=== PATIENT | female | born 1945 | race Caucasian/White ===

== ENCOUNTER → 2019-01-06 08:45 | Outpatient (CLI) | payer MEDICARE, OTHER, SELFPAY ==
--- NOTE | 2019-01-06 | DI.MG.S_ITS ---
BILATERAL DIGITAL SCREENING MAMMOGRAM 3D/2D WITH CAD: 01/06/2019 CLINICAL: Routine screening. Comparison is made to exams dated: 12/11/2017 mammogram, 04/14/2015 mammogram, and 03/15/2014 mammogram - [facility]. There are scattered fibroglandular elements in both breasts. Current study was also evaluated with a Computer Aided Detection (CAD) system. No significant masses, calcifications, or other findings are seen in either breast. There has been no significant interval change. IMPRESSION: NEGATIVE There is no mammographic evidence of malignancy. A 1 year screening mammogram is recommended. This exam was interpreted at Station ID: [id number]. NOTE: For mammograms, a report in lay terms will be sent to the patient. Approximately 15% of breast malignancies will not be visualized mammographically. In the management of a palpable breast mass, a negative mammogram must not discourage biopsy of a clinically suspicious lesion. Electronically Signed By: Tom loo/michael:01/06/2019 17:54:30 letter sent: Normal Exam ACR BI-RADS Category 1: Negative 3341F
== END ==
PROVIDERS: PCP Family Medicine; Visit Provider Family Medicine
DX: Z12.31 Encounter for screening mammogram for malignant neoplasm of breast (principal)
CPT/HCPCS: 77063; 77067

== ENCOUNTER 2019-10-18 07:07 | Emergency (ER) | payer MEDICARE, OTHER, SELFPAY ==
[2019-10-18 07:21] VITALS: BP 167/102; PULSE 52; RESP 18; TEMP 36.6; O2SAT 98; BMI 23.0
--- NOTE | 2019-10-18 07:58 | ED.URI ---
HPI - URI/Sore Throat General Chief Complaint: Upper Respiratory Symptoms Stated Complaint: real bad sinus infection Time Seen by Provider: 10/18/19 07:49 Source: patient and family Mode of arrival: Wheelchair History of Present Illness HPI Narrative: Patient is a 73-year-old female who presents with dizziness and lightheadedness nausea and diarrhea. She states for the last few days however she has had a couple episodes of diarrhea which started last night in the dizziness got worse and started today as well. Every time she turns her head sits up or moves she feels like the room is spinning and she feels nauseous. She has not yet vomited. She overall has some head pressure does not feel well. She has no numbness tingling is or weakness or any focal deficits. No abdominal pain no chest pain or heart palpitations. MD Complaint: nasal congestion and sinus pain Duration: constant Related Data Home Medications Medication Instructions Recorded Confirmed CA PANTOTHENATE/FOLIC ACID/VIT #0 12/30/12 (MULTIVITAMIN) fluticasone propionate 1 spray INTRANASAL DIRECTED 10/18/19 10/18/19 Previous Rx's Medication Instructions Recorded alendronate [Fosamax] 70 mg PO SEE INSTRUCTIONS #12 tab 12/11/17 levofloxacin [Levaquin] 750 mg PO DAILY #5 tab 10/18/19 Allergies Allergy/AdvReac Type Severity Reaction Status Date / Time Sulfa (Sulfonamide Allergy Intermediate HIVES Verified 10/18/19 07:23 Antibiotics) Review of Systems Review of Systems ROS Unobtainable: All systems reviewed & are unremarkable except as noted in HPI and below Constitutional Constitutional: Denies chills, Reports headache(s), Denies malaise and Reports weakness Eyes Eyes: Denies blurry vision and Denies change in vision ENT Ears, Nose, Mouth, and Throat: Reports as per HPI, Reports dizziness, Reports headache(s) and Reports sinus pressure Cardiovascular Cardiovascular: Denies chest pain, Denies irregular heart rhythm, Reports lightheadedness, Denies dyspnea and Denies dyspnea on exertion Respiratory Respiratory: Denies cough, Denies dyspnea, Denies dyspnea on exertion and Denies wheezing Gastrointestinal Gastrointestinal: Denies abdominal pain, Denies change in bowel habits, Denies diarrhea, Denies nausea and Denies vomiting Genitourinary Genitourinary: Denies hematuria, Denies flank pain, Denies urinary incontinence and Denies urinary urgency Musculoskeletal Musculoskeletal: Denies back pain, Denies muscle weakness, Denies numbness and Denies tingling Integumentary/Breasts Skin/Breast: Denies pruritus, Denies erythema, Denies rash and Denies wounds Neurologic Neurologic: Reports dizziness, Reports headache(s), Denies numbness, Denies tingling and Reports weakness Allergic/Immunologic Allergic/Immunologic: Denies wheezing Patient History Medical History Patient denies medical problems (Acute) Surgical History History of tonsillectomy Exam Initial Vital Signs Initial Vital Signs: Vital Signs Temperature 97.8 F 10/18/19 07:21 Pulse Rate 52 L 10/18/19 07:21 Respiratory Rate 18 10/18/19 07:21 Blood Pressure 167/102 H 10/18/19 07:21 Pulse Oximetry 98 10/18/19 07:21 GENERAL: Well-appearing, well-nourished and in no acute distress. HEENT: Head atraumatic,EOMI, pupils reactive, face symmetric, turning head and sitting up reproduces dizziness CARDIOVASCULAR: Regular rate and rhythm without murmurs, rubs or gallops. RESPIRATORY: Breath sounds equal bilaterally, no wheezes rales or rhonchi. ABDOMEN: Soft, nontender. Normoactive bowel sounds all 4 quadrants. No guarding or rebound. EXTREMITIES: Normal range of motion, no clubbing or edema. Neurovascularly intact NEUROLOGICAL: Alert and oriented x4.Normal gait and speech. Cranial nerves II through XII grossly intact. [employer] strength equal bilaterally depression full able to lift extremities equally SKIN: Warm, dry, no laceration, no petechiae, no rashes or lesions. Scores HEART Score Heart Score history: Slightly Suspicious Heart Score EKG: Normal Heart Score Age: > or = 65 years old Heart Score risk factors: No known risk factors Heart Score troponin: < or = to normal limit Heart Score Total: 2 Course Orders Ordered: ED Orders 10/18/19 09:49 XR chest 1V Stat 10/18/19 10:30 Urine Culture Stat Urine Microscopic Stat 10/18/19 12:05 Troponin I Stat Discontinued Medications Sodium Chloride (Normal Saline 0.9%) 1,000 mls @ 1,000 mls/hr IV CONT MOE Last Infusion: 10/18/19 10:39 Dose: 0 mls/hr Documented by: Admin: 10/18/19 09:04 Dose: 1,000 mls/hr Documented by: ARMANDO Meclizine HCl (Antivert) 25 mg PO NOW ONE Stop: 10/18/19 07:56 Last Admin: 10/18/19 09:04 Dose: 25 mg Documented by: ARMANDO Ondansetron HCl (Zofran) 4 mg IV NOW ONE Stop: 10/18/19 07:56 Last Admin: 10/18/19 09:04 Dose: 4 mg Documented by: ARMANDO Vital Signs Vital signs: Vital Signs - 8 hr 10/18/19 11:00 10/18/19 12:00 10/18/19 12:56 Pulse Rate 63 62 58 L Respiratory Rate 14 15 14 Blood Pressure [Right Arm] 166/92 H 186/96 H 165/86 H Pulse Oximetry 100 99 99 MDM - URI/Sore Throat Lab Data Attestation: I reviewed the patient's lab results. Result diagrams: 10/18/19 08:54 10/18/19 08:54 Labs: Lab Results 10/18/19 10/18/19 10/18/19 Range/Units 08:54 08:54 10:30 WBC 10.9 (4.5-11.0) X10^3/uL RBC 4.95 (4.0-5.2) X10^6/uL Hgb 13.6 (12.0-16.0) g/dL Hct 41.7 (36-46) % MCV 84.2 (80-100) fL MCH 27.4 (26-34) PG MCHC 32.6 (30-36) % RDW 14.5 (11.6-14.8) % Plt Count 185 (150-400) X10^3/uL Neut % (Auto) 86.2 H (50-75) % Lymph % (Auto) 8.6 L (25-40) % [place] % (Auto) 4.6 (3-14) % Eos % (Auto) 0.3 L (2-4) % Baso % (Auto) 0.3 (0-2) % Neut # (Auto) 9400 H (1079-2183) /uL Lymph # (Auto) 900 L (5332-6340) /uL [place] # (Auto) 500 (0-900) /uL Eos # (Auto) 0 (0-450) /uL Baso # (Auto) 0 (0-100) /uL Sodium 141 (137-145) mmol/L Potassium 3.8 (3.4-5.1) mmol/L Chloride 107 (98-107) mmol/L Carbon Dioxide 28 (22-32) mmol/L BUN 18 H (7-17) mg/dL Creatinine 0.60 (0.52-1.04) mg/dL Estimated GFR > 60.0 (>60) mL/min BUN/Creatinine Ratio 30.0 H (6-22) Glucose 105 (80-110) mg/dL Calcium 8.9 (8.4-10.2) mg/dL Troponin I < 0.012 (0.01-0.034) ng/mL Urine RBC None seen (0-5/HPF) Urine WBC 5-10/hpf H (0-5/HPF) Urine Bacteria Moderate (10-30) H (None) Ur Culture Indicated? Specimen cultured 10/18/19 Range/Units 12:05 WBC (4.5-11.0) X10^3/uL RBC (4.0-5.2) X10^6/uL Hgb (12.0-16.0) g/dL Hct (36-46) % MCV (80-100) fL MCH (26-34) PG MCHC (30-36) % RDW (11.6-14.8) % Plt Count (150-400) X10^3/uL Neut % (Auto) (50-75) % Lymph % (Auto) (25-40) % [place] % (Auto) (3-14) % Eos % (Auto) (2-4) % Baso % (Auto) (0-2) % Neut # (Auto) (2986-2185) /uL Lymph # (Auto) (2902-6318) /uL [place] # (Auto) (0-900) /uL Eos # (Auto) (0-450) /uL Baso # (Auto) (0-100) /uL Sodium (137-145) mmol/L Potassium (3.4-5.1) mmol/L Chloride (98-107) mmol/L Carbon Dioxide (22-32) mmol/L BUN (7-17) mg/dL Creatinine (0.52-1.04) mg/dL Estimated GFR (>60) mL/min BUN/Creatinine Ratio (6-22) Glucose (80-110) mg/dL Calcium (8.4-10.2) mg/dL Troponin I < 0.012 (0.01-0.034) ng/mL Urine RBC (0-5/HPF) Urine WBC (0-5/HPF) Urine Bacteria (None) Ur Culture Indicated? Urine Dip Bedside Urine Glucose Negative Bedside Urine Bilirubin - Negative Bedside Urine Ketone - Negative Urine Specific [place] 1.015 Bedside Urine Occult Blood - Negative Bedside Urine pH 6.0 Bedside Urine Protein - Negative Bedside Urine Urobilinogen - Negative Bedside Urine Nitrite - Negative Bedside Urine Leukocytes + 70 Esterase Imaging Data Chest x-ray: Radiologist's Impression: PROCEDURE: XR CHEST 1V INDICATIONS: chest pain TECHNIQUE: One view of the chest was acquired. COMPARISON: None. FINDINGS: Surgical changes and devices: None. Lungs and pleura: Mild bilateral reticular nodular pulmonary density. No pleural effusions or pneumothorax. Mediastinum: Mediastinal contours appear normal. Heart size is normal. Bones and chest wall: No suspicious bony lesions. Overlying soft tissues appear unremarkable. IMPRESSION: Mild atypical pneumonia. Dictated by: Lenard Oconnor M.D. on 10/18/2019 at 10:51 ECG Data Attestation: I personally reviewed and interpreted this ECG as follows: Prior ECG tracings: available for review Interpretation: Normal sinus rhythm rate 56 p.r. interval [address] elevation depression or T-wave inversion [facility] Narrative Medical decision making narrative: Patient started having chest pain all the emergency department repeat EKG and troponin are both negative. She is found have atypical pneumonia and possible UTI started her on Levaquin. This is likely contributing to her dizziness and lightheadedness. At this time she says the dizziness is improving as well as the nausea feels comfortable going. Discharge Plan Departure Patient Disposition: Home Clinical Impression: Atypical pneumonia, Acute UTI Discharge Date/Time: 10/18/19 13:08 Instructions: Atypical Pneumonia, DI for Urinary Tract Infection (UTI) Activity Restrictions/Additional Instructions: *You have been diagnosed with pneumonia and bladder infection *What to do: The infections are likely causing her dizziness and lightheadedness and possibly her chest pain as well *Continue to take medications as directed--> SENT TO [facility] IN [place] Levaquin 750 mg once a day for 5 days-this should treat both infection *Follow up with your primary care provider in 2-3 days *Return to ER if you should have increasing chest pain shortness of breath dizziness lightheadedness or any new, worsening or concerning symptoms Prescriptions: New levofloxacin [Levaquin] 750 mg tablet 750 mg PO DAILY Qty: 5 RF: 0 No Action CA PANTOTHENATE/FOLIC ACID/VIT (MULTIVITAMIN) Qty: 0 RF: 0 alendronate [Fosamax] 70 MG tablet 70 mg PO SEE INSTRUCTIONS Qty: 12 RF: 0 fluticasone propionate 50 mcg/actuation spray,suspension 1 spray INTRANASAL DIRECTED RF: 0 Referrals: Candelario Wong MD [Primary Care Provider] -
[2019-10-18 09:00] LABS: Add Manual Diff / Slide Review NO; Basophils Absolute Auto 0 /uL (0-100); Basophils Percent Auto 0.3 % (0-2); Eosinophils Absolute Auto 0 /uL (0-450); Eosinophils Percent Auto 0.3 % (2-4); Hematocrit 41.7 % (36-46); Hemoglobin 13.6 g/dL (12.0-16.0); Lymphocytes Absolute Auto 900 /uL (1100-4500); Lymphocytes Percent Auto 8.6 % (25-40); Mean Corpuscular HGB Conc 32.6 % (30-36); Mean Corpuscular Hemoglobin 27.4 PG (26-34); Mean Corpuscular Volume 84.2 fL (80-100); Monocytes Absolute Auto 500 /uL (0-900); Monocytes Percent Auto 4.6 % (3-14); Neutrophils Absolute Auto 9400 /uL (1500-7000); Neutrophils Percent Auto 86.2 % (50-75); Platelet Count 185 X10^3/uL (150-400); Red Blood Cell Count 4.95 X10^6/uL (4.0-5.2); Red Cell Distribution Width 14.5 % (11.6-14.8); White Blood Cell Count 10.9 X10^3/uL (4.5-11.0)
[2019-10-18] MEDS: ONDANSETRON 4 MG/2 ML INJ IV (09:04)
[2019-10-18] MEDS: SODIUM CHLORIDE 0.9% 1,000 ML 1000 ML IV (09:04)
[2019-10-18] MEDS: MECLIZINE HCL 12.5 MG TABLET 25 MG PO (09:04)
[2019-10-18 09:10] LABS: Blood Urea Nitrogen 18 mg/dL (7-17); Calcium 8.9 mg/dL (8.4-10.2); Carbon Dioxide 28 mmol/L (22-32); Chloride 107 mmol/L (98-107); Estimated Glomerular Filt Rate > 60.0 mL/min (>60); Glucose 105 mg/dL (80-110); HEMOLYSIS < 15 (0-50); Potassium 3.8 mmol/L (3.4-5.1); Sodium 141 mmol/L (137-145)
[2019-10-18 09:23] LABS: Troponin I < 0.012 ng/mL (0.01-0.034)
--- NOTE | 2019-10-18 09:49 | DI.RAD.S_ITS ---
PROCEDURE: XR CHEST 1V INDICATIONS: chest pain TECHNIQUE: One view of the chest was acquired. COMPARISON: None. FINDINGS: Surgical changes and devices: None. Lungs and pleura: Mild bilateral reticular nodular pulmonary density. No pleural effusions or pneumothorax. Mediastinum: Mediastinal contours appear normal. Heart size is normal. Bones and chest wall: No suspicious bony lesions. Overlying soft tissues appear unremarkable. IMPRESSION: Mild atypical pneumonia. Dictated by: Lenard Oconnor M.D. on 10/18/2019 at 10:51 Approved by: Lenard Oconnor M.D. on 10/18/2019 at 10:52
[2019-10-18 10:00] VITALS: BP 187/92; PULSE 63; RESP 6; O2SAT 97
[2019-10-18 10:30] VITALS: BP 179/89; PULSE 65; RESP 15; O2SAT 98
[2019-10-18 11:00] VITALS: BP 166/92; PULSE 63; RESP 14; O2SAT 100
[2019-10-18 11:00] LABS: RBC Urine None Seen (0-5/HPF)
[2019-10-18 11:10] LABS: Bacteria Urine Moderate (10-30); Culture Indicated Urine Specimen Cultured; WBC Urine 5-10/HPF (0-5/HPF)
[2019-10-18 12:00] VITALS: BP 186/96; PULSE 62; RESP 15; O2SAT 99
[2019-10-18 12:35] LABS: Troponin I < 0.012 ng/mL (0.01-0.034)
[2019-10-18 12:56] VITALS: BP 165/86; PULSE 58; RESP 14; O2SAT 99
== END 2019-10-18 13:08 | disposition home or self-care (01) ==
PROVIDERS: Emergency Provider Emergency Medicine; PCP Family Medicine
DX: J18.9 Pneumonia, unspecified organism (principal); N30.90 Cystitis, unspecified without hematuria; R42 Dizziness and giddiness; R07.9 Chest pain, unspecified
CPT/HCPCS: 36415; 71045; 80048; 81003; 81015; 84484; 85025; 87077; 87086; 87186; 93005; 96361; 96374; 99283; 99285; J2405

== ENCOUNTER → 2020-06-01 12:39 | Outpatient (CLI) | payer MEDICARE, OTHER, SELFPAY ==
--- NOTE | 2020-06-01 12:43 | DI.MG.S_ITS ---
BILATERAL DIGITAL SCREENING MAMMOGRAM 3D/2D WITH CAD: 06/01/2020 CLINICAL: Routine screening. Comparison is made to exams dated: 01/06/2019 mammogram, 12/11/2017 mammogram, 03/20/2016 mammogram, 04/14/2015 mammogram, 10/04/2014 mammogram, and 03/15/2014 mammogram - [facility]. There are scattered fibroglandular elements in both breasts. Current study was also evaluated with a Computer Aided Detection (CAD) system. There are benign calcifications in both breasts. There also are benign vascular calcifications in the right breast. No significant masses, calcifications, or other findings are seen in either breast. There has been no significant interval change. IMPRESSION: BENIGN There is no mammographic evidence of malignancy. A 1 year screening mammogram is recommended. This exam was interpreted at Station ID: [id number]. NOTE: For mammograms, a report in lay terms will be sent to the patient. Approximately 15% of breast malignancies will not be visualized mammographically. In the management of a palpable breast mass, a negative mammogram must not discourage biopsy of a clinically suspicious lesion. Electronically Signed By: Ronal méndez/michael:06/01/2020 17:15:20 letter sent: Normal Exam ACR BI-RADS Category 2: Benign Finding(s) 3342F
== END ==
PROVIDERS: PCP Family Medicine; Referring Provider Family Medicine; Visit Provider Family Medicine
DX: Z12.31 Encounter for screening mammogram for malignant neoplasm of breast (principal)
CPT/HCPCS: 77063; 77067

== ENCOUNTER → 2020-06-27 09:26 | Outpatient (CLI) | payer MEDICARE, OTHER, SELFPAY ==
[2020-06-27 11:25] LABS: Add Manual Diff / Slide Review NO; Basophils Absolute Auto 100 /uL (0-100); Basophils Percent Auto 1.2 % (0-2); Eosinophils Absolute Auto 100 /uL (0-450); Eosinophils Percent Auto 1.8 % (2-4); Hematocrit 42.5 % (36-46); Hemoglobin 13.9 g/dL (12.0-16.0); Lymphocytes Absolute Auto 1200 /uL (1100-4500); Lymphocytes Percent Auto 21.1 % (25-40); Mean Corpuscular HGB Conc 32.6 % (30-36); Mean Corpuscular Hemoglobin 27.6 PG (26-34); Mean Corpuscular Volume 84.6 fL (80-100); Monocytes Absolute Auto 500 /uL (0-900); Neutrophils Absolute Auto 3800 /uL (1500-7000); Neutrophils Percent Auto 66.9 % (50-75); Platelet Count 201 X10^3/uL (150-400); Red Blood Cell Count 5.03 X10^6/uL (4.0-5.2); Red Cell Distribution Width 14.3 % (11.6-14.8); White Blood Cell Count 5.6 X10^3/uL (4.5-11.0)
[2020-06-27 12:14] LABS: Alanine Aminotransferase 27 IU/L (<35); Albumin Globulin Ratio 1.4 (1.0-2.8); Alkaline Phosphatase 77 U/L (38-126); Aspartate Aminotransferase 31 IU/L (14-36); BUN Creatinine Ratio 27.4 (6-22); Bilirubin Total 0.5 mg/dL (0.2-1.3); Blood Urea Nitrogen 20 mg/dL (7-17); Calcium 9.4 mg/dL (8.4-10.2); Carbon Dioxide 31 mmol/L (22-32); Chloride 101 mmol/L (98-107); Cholesterol 214 mg/dL (140-199); Estimated Glomerular Filt Rate > 60.0 mL/min (>60); Globulin 2.8 g/dL (1.7-4.1); Glucose 73 mg/dL (80-110); HDL Cholesterol 90 mg/dL (40-60); HEMOLYSIS < 15 (0-50); LDL Cholesterol Calculated 100 mg/dL (<100); Potassium 3.9 mmol/L (3.4-5.1); Sodium 138 mmol/L (137-145); Total Protein 6.8 g/dL (6.3-8.2); Triglycerides 119 mg/dL (35-150)
[2020-06-27 12:39] LABS: Thyroid Stimulating Hormone 2.27 uIU/mL (0.47-4.68)
== END ==
PROVIDERS: PCP Family Medicine; Referring Provider Family Medicine; Visit Provider Family Medicine
DX: I10 Essential (primary) hypertension (principal)
CPT/HCPCS: 36415; 80053; 80061; 84443; 85025

== ENCOUNTER → 2020-07-13 09:58 | Outpatient (CLI) | payer MEDICARE, OTHER, SELFPAY ==
--- NOTE | 2020-07-13 10:00 | DI.RAD.S_ITS ---
PROCEDURE: XR DEXA AXIAL SKELETON INDICATIONS: post menopausal symptoms COMPARISON: None. FINDINGS: This blank DEXA report has been sent in error by the PACS system. The correct and complete report will be forthcoming in 1-2 days. Thank you for your patience and understanding. Dictated by: Sarah Pierce MD, PhD on 07/13/2020 at 17:26 Approved by: Sarah Pierce MD, PhD on 07/13/2020 at 17:26
== END ==
PROVIDERS: PCP Family Medicine; Referring Provider Family Medicine; Visit Provider Family Medicine
DX: M85.88 Other specified disorders of bone density and structure, other site (principal); Z78.0 Asymptomatic menopausal state; Z82.62 Family history of osteoporosis
CPT/HCPCS: 77080

== ENCOUNTER 2020-12-11 11:52 | Emergency (ER) | payer MEDICARE, OTHER, SELFPAY ==
[2020-12-11 12:03] VITALS: BP 217/105; PULSE 52; RESP 16; TEMP 36.4; O2SAT 100; BMI 23.0
--- NOTE | 2020-12-11 12:08 | DI.RAD.S_ITS ---
PROCEDURE: XR FOREARM LT 2V INDICATIONS: fall TECHNIQUE: 2 views of the forearm were acquired. COMPARISON: None. FINDINGS: Bones: No dislocations. No suspicious bony lesions. There is an impacted intra-articular dorsally angulated distal radius Colles'fracture, and also fracture at the distal metadiaphyseal junction of the ulna, in addition to a fracture across the base of the ulnar-styloid process. Soft tissues: No suspicious soft tissue calcifications or masses. IMPRESSION: Significant malalignment is associated with a distal radius and distal ulna fracture complex, with intra-articular extension. Dorsal angulation in addition to distal radius impaction is present. Mild malalignment along the diagonal distal ulna fracture plane. Dictated by: Anson Santos M.D. on 12/11/2020 at 12:48 Approved by: Anson Santos M.D. on 12/11/2020 at 12:52
[2020-12-11] MEDS: HYDROCODONE/ACET 5/325 TABLET 1 TAB PO (14:16)
--- NOTE | 2020-12-11 15:31 | ED.UPPEXIN ---
HPI - Extremity Injury (Upper) <ADRIANA Dominguez-BC - Last Filed: 12/11/20 16:12> General Chief Complaint: Extremity Injury, Upper Stated Complaint: Fall, Hurt Left Wrist Time Seen by Provider: 12/11/20 14:04 Source: patient and family Mode of arrival: Ambulatory Limitations: no limitations History of Present Illness HPI narrative: The patient is a 75-year-old female nonsmoker who denies pertinent medical history presents with a chief complaint of left wrist pain after a slip and fall earlier today. She states that she has a FOOSH injury to her left wrist. She is able to flex and extend her left elbow, denies any pain to her left shoulder. She did not hit her head, denies any neck or back pain she states that she fell because she was wearing a rocks on slippery grass. She states that she landed solely on her left hand Related Data Home Medications Medication Instructions Recorded Confirmed CA PANTOTHENATE/FOLIC ACID/VIT #0 12/30/12 06/27/20 (MULTIVITAMIN) Previous Rx's Medication Instructions Recorded fluticasone propionate 50 1 spray INTRANASAL DAILY #15.8 ml 07/27/20 mcg/actuation nasal spray,suspension hydrocodone-acetaminophen [[place]] 1 tab PO Q4-6H PRN #14 tab 12/11/20 Allergies Allergy/AdvReac Type Severity Reaction Status Date / Time Sulfa (Sulfonamide Allergy Intermediate HIVES Verified 12/11/20 12:08 Antibiotics) Review of Systems <ADRIANA Dominguez-BC - Last Filed: 12/11/20 16:12> Review of Systems Narrative: GENERAL: Denies chills, fatigue, malaise, fever, sweats. HEENT: Denies sinus pain, ear pain, sore throat, difficulty swallowing, dizziness. RESPIRATORY: Denies dyspnea, cough, wheezing, hemoptysis, sputum. CARDIOVASCULAR: Denies chest pain, palpitations, orthopnea, edema, GASTROINTESTINAL: Denies nausea, vomiting, abdominal pain, diarrhea, constipation, melena. : Denies dysuria, frequency, incontinence, hematuria, urinary retention. MUSCULOSKELETAL: See HPI SKIN: Denies rash, skin lesions, or other NEUROLOGIC: Denies weakness, headache, numbness, change in speech, confusion, seizures, incoordination. PSYCHIATRIC: No concerning psychosocial issues. 12 point review of systems is negative except for those stated above Patient History <JANINA Dominguez - Last Filed: 12/11/20 16:12> Medical History (Updated 12/11/20 @ 15:38 by JANINA Dominguez) Chronic sinusitis Patient denies medical problems Surgical History History of tonsillectomy Social History Smoking Status: Never smoker Smoking Status: Never smoker Exam <JANINA Dominguez - Last Filed: 12/11/20 16:12> Narrative Exam Narrative: GENERAL: This is a well-nourished, well-developed patient, in no acute distress HEAD: Atraumatic. Normocephalic. No temporal or scalp tenderness. EYES: Pupils equal round and reactive. Extraocular motions intact. No scleral icterus. No injection or drainage. ENT: Nose without bleeding, purulent drainage or septal hematoma. Wearing a mask Airway patent. NECK: Trachea midline. No JVD or lymphadenopathy. Supple, nontender, no meningeal signs. CARDIOVASCULAR: Regular rate and rhythm RESPIRATORY: Clear to auscultation. Breath sounds equal bilaterally. No wheezes, rales, or rhonchi. No cough. No increased respiratory effort. No accessory muscle use. GASTROINTESTINAL: Abdomen soft, non-tender, nondistended. No hepato-splenomegaly, or palpable masses. No guarding. EXTREMITIES: Pain to palpation and significant swelling noted left wrist wiggling left fingers. Positive left radial pulse. Cap refill less than 2 seconds all fingers left wrist. No pain to palpation left elbow or shoulder. BACK: Nontender without deformity or crepitance. No flank tenderness. No pain to CT or L-spine palpation NEURO: AOx3. No cranial nerve deficit. Clear speech. SKIN: See extremity exam Initial Vital Signs Initial Vital Signs: Vital Signs Temperature 97.6 F 12/11/20 12:03 Pulse Rate 52 L 12/11/20 12:03 Respiratory Rate 16 12/11/20 12:03 Blood Pressure 217/105 H 12/11/20 12:03 Pulse Oximetry 100 12/11/20 12:03 <Olga Espinoza MD - Last Filed: 12/11/20 20:02> Initial Vital Signs Initial Vital Signs: Vital Signs Temperature 97.6 F 12/11/20 12:03 Pulse Rate 52 L 12/11/20 12:03 Respiratory Rate 16 12/11/20 12:03 Blood Pressure 217/105 H 12/11/20 12:03 Pulse Oximetry 100 12/11/20 12:03 Procedures <JANINA Dominguez - Last Filed: 12/11/20 16:12> Orthopedic Splinting/Casting Injury #1: Side: left Upper Extremity Injury Location: forearm Upper Extremity Immobilizer: sling/shoulder immobilizer and sugar tong splint Post splinting neuro exam: intact Post splinting vascular exam: intact Placed by: Nursing Scores <JANINA Dominguez - Last Filed: 12/11/20 16:12> GCS Monroe coma scale eye opening: Spontaneous Monroe coma scale verbal response: Orientated Monroe coma scale motor response: Obey commands Monroe coma scale total score: 15 Course <JANINA Dominguez - Last Filed: 12/11/20 16:12> Orders Ordered: ED Orders 12/11/20 12:08 XR forearm LT 2V Stat Discontinued Medications Hydrocodone Bitart/Acetaminophen (Hydrocodone/Acet 5/325 Tablet) 1 tab PO NOW ONE Stop: 12/11/20 14:10 Last Admin: 12/11/20 14:16 Dose: 1 tab Documented by: ANA PAULA Vital Signs Vital signs: Vital Signs - 8 hr 12/11/20 12:03 12/11/20 15:35 Temperature 97.6 F Pulse Rate 52 L 89 Respiratory Rate 16 18 Blood Pressure 217/105 H 165/82 H Pulse Oximetry 100 98 <Olga Espinoza MD - Last Filed: 12/11/20 20:02> Orders Ordered: ED Orders 12/11/20 12:08 XR forearm LT 2V Stat Discontinued Medications Hydrocodone Bitart/Acetaminophen (Hydrocodone/Acet 5/325 Tablet) 1 tab PO NOW ONE Stop: 12/11/20 14:10 Last Admin: 12/11/20 14:16 Dose: 1 tab Documented by: ANA PAULA Vital Signs Vital signs: Vital Signs - 8 hr 12/11/20 12:03 12/11/20 15:35 Temperature 97.6 F Pulse Rate 52 L 89 Respiratory Rate 16 18 Blood Pressure 217/105 H 165/82 H Pulse Oximetry 100 98 [facility] - Extremity Injury (Upper) <Hallie GodoyADRIANA-BC - Last Filed: 12/11/20 16:12> Imaging Data Extremity x-ray #1: Radiologist's Impression: [address] [place] [id number] ReportSigned Patient: Yenni Ricci PMR#: [id number]: 7Acct:[id number]/Sex: 75 / FDate of Service: 12/11/20Loc: EDAccession Number: [id number] Procedure: XR forearm LT 2V Ordering Provider: Olga Espinoza MD PROCEDURE: XR FOREARM LT 2V INDICATIONS: fall TECHNIQUE: 2 views of the forearm were acquired. COMPARISON: None. FINDINGS: Bones: No dislocations. No suspicious bony lesions. There is an impacted intra-articular dorsally angulated distal radius Colles'fracture, and also fracture at the distal metadiaphyseal junction of the ulna, in addition to a fracture across the base of the ulnar-styloid process. Soft tissues: No suspicious soft tissue calcifications or masses. IMPRESSION: Significant malalignment is associated with a distal radius and distal ulna fracture complex, with intra-articular extension. Dorsal angulation in addition to distal radius impaction is present. Mild malalignment along the diagonal distal ulna fracture plane. Dictated by: Anson Santos M.D. on 12/11/2020 at 12:48 Approved by: Anson Santos M.D. on 12/11/2020 at 12:52 [facility] Narrative Medical decision making narrative: The patient is a 75-year-old female who presents with a chief complaint of a left wrist injury after a ground level fall. She is neurovascularly intact throughout her stay in the ER. I spoke with Dr. Espinoza regarding the patient, who viewed her x-rays recommended sugar-tong splint and orthopedic follow-up. Per Dr. Espinoza nothing else to do at this point time regarding her fracture, would not benefit from reduction. Patient was provided [place] for pain. She is placed in sugar-tong, remainder vascularly intact before and after. I discussed at length the importance of follow-up with primary care provider the next few days. She states she would like to establish care with Dr Moreau so his office was contacted by the emergency department they will reach out to patient.. Discussed at length follow-up with [facility] and gave him contact information for follow-up. Discussed at length coming back to the ER for acute concerns such as decreased circulation to her fingers. No questions or concerns upon discharge states understanding return precautions as well as follow-up care. Discharge Plan Departure Patient Disposition: Home Clinical Impression: Fall from ground level Closed fracture distal radius and ulna Qualifiers: Encounter type: initial encounter Laterality: left Qualified Code(s): S52.502A - Unspecified fracture of the lower end of left radius, initial encounter for closed fracture Instructions: How to Use a Sling, DI for Wrist Fracture, How To Perform RICE (Rest, Ice, Compress, Elevate), How to Take Care of Your Splint Activity Restrictions/Additional Instructions: Thank you for trusting us with your care today As discussed, you broke your wrist. Please follow-up with [facility]. Please also follow-up with primary care provider in the next few days. I will send a copy of your note to Dr. Moreau and I have included his contact information as well as [facility] contact information I have given you a prescription of a narcotic pain medication You have been prescribed narcotic medications. While on these medications you cannot drive or operate heavy machinery. Additionally you cannot sign legal documents or perform any duties such as this. Many people get constipated on narcotic medications so it would be advisable to discuss stool softeners with the pharmacist when you belt picker your prescription. As discussed, please come back to the emergency department for any acute concerns such as decreased circulation to your hand Prescriptions: New hydrocodone-acetaminophen [[place]] 5-325 mg tablet 1 tab PO Q4-6H PRN (Reason: pain) Qty: 14 RF: 0 No Action CA PANTOTHENATE/FOLIC ACID/VIT (MULTIVITAMIN) Qty: 0 RF: 0 fluticasone propionate 50 mcg/actuation spray,suspension 1 spray INTRANASAL DAILY Qty: 15.8 RF: 1 Referrals: [facility] [Provider Group] Candelario Wong MD [Primary Care Provider] - Anthony Moreau MD [Physician] - <Olga Espinoza MD - Last Filed: 12/11/20 20:02> Cosign ED Attending Annetteature Attestation: I was immediately available in the department for consultation throughout this patient's visit. I agree with documentation as above. Olga Espinoza MD
[2020-12-11 15:35] VITALS: BP 165/82; PULSE 89; RESP 18; O2SAT 98
== END 2020-12-11 15:57 | disposition home or self-care (01) ==
PROVIDERS: Emergency Provider Nurse Practitioner Family; PCP Family Medicine
DX: S52.502A Unspecified fracture of the lower end of left radius, initial encounter for closed fracture (principal); W19.XXXA Unspecified fall, initial encounter
CPT/HCPCS: 29125; 73090; 99283

== ENCOUNTER → 2021-06-08 08:24 | Outpatient (CLI) | payer MEDICARE, OTHER, SELFPAY ==
--- NOTE | 2021-06-08 | DI.MG.S_ITS ---
BILATERAL DIGITAL SCREENING MAMMOGRAM 3D/2D WITH CAD: 06/08/2021 CLINICAL: Routine screening. Comparison is made to exams dated: 06/01/2020 mammogram, 01/06/2019 mammogram, and 12/11/2017 mammogram - [facility]. There are scattered fibroglandular elements in both breasts. Current study was also evaluated with a Computer Aided Detection (CAD) system. There are benign calcifications in both breasts. There also are benign vascular calcifications in the right breast. No significant masses, calcifications, or other findings are seen in either breast. There has been no significant interval change. IMPRESSION: BENIGN There is no mammographic evidence of malignancy. A 1 year screening mammogram is recommended. This exam was interpreted at Station ID: [id number]. NOTE: For mammograms, a report in lay terms will be sent to the patient. Approximately 15% of breast malignancies will not be visualized mammographically. In the management of a palpable breast mass, a negative mammogram must not discourage biopsy of a clinically suspicious lesion. Electronically Signed By: Fidencio Zavala M.D., jr/michael:06/08/2021 09:22:21 letter sent: Normal Exam ACR BI-RADS Category 2: Benign Finding(s) [id number]
== END ==
PROVIDERS: PCP Family Medicine; Referring Provider Family Medicine; Visit Provider Family Medicine
DX: Z12.31 Encounter for screening mammogram for malignant neoplasm of breast (principal)
CPT/HCPCS: 77063; 77067

== ENCOUNTER → 2021-07-09 13:36 | Outpatient (CLI) | payer MEDICARE, OTHER, SELFPAY ==
--- NOTE | 2021-07-09 13:38 | DI.RAD.S_ITS ---
PROCEDURE: XR KNEE RT 3V INDICATIONS: right knee pain TECHNIQUE: 3 views of the knee were acquired. COMPARISON: [facility], , KNEE 3V RIGHT, 01/10/2009, 14:09. FINDINGS: Bones: No fractures or dislocations. Maby-jz-dcnshubo tricompartmental osteoarthritis is seen more prominent in medial femoral tibial compartment. No suspicious bony lesions. Soft tissues: No joint effusion. No suspicious soft tissue calcifications. IMPRESSION: Mvzr-vt-zumomuiq tricompartmental osteoarthritis. No fracture or dislocation. No significant joint effusion. Dictated by: Nawaf Chavez M.D. on 07/09/2021 at 14:24 Approved by: Nawaf Chavez M.D. on 07/09/2021 at 14:24
== END ==
PROVIDERS: PCP Family Medicine; Referring Provider Family Medicine; Visit Provider Family Medicine
DX: S83.8X1A Sprain of other specified parts of right knee, initial encounter (principal); M17.11 Unilateral primary osteoarthritis, right knee
CPT/HCPCS: 73562

== ENCOUNTER → 2021-07-11 10:23 | Outpatient (CLI) | payer MEDICARE, OTHER, SELFPAY ==
[2021-07-11 11:16] LABS: Add Manual Diff / Slide Review NO; Basophils Absolute Auto 0 /uL (0-100); Basophils Percent Auto 0.6 % (0-2); Eosinophils Absolute Auto 100 /uL (0-450); Eosinophils Percent Auto 2.5 % (2-4); Lymphocytes Absolute Auto 1100 /uL (1100-4500); Lymphocytes Percent Auto 20.6 % (25-40); Mean Corpuscular HGB Conc 31.9 % (30-36); Mean Corpuscular Volume 84.9 fL (80-100); Monocytes Absolute Auto 500 /uL (0-900); Monocytes Percent Auto 9.4 % (3-14); Neutrophils Absolute Auto 3600 /uL (1500-7000); Neutrophils Percent Auto 66.9 % (50-75); Platelet Count 225 X10^3/uL (150-400); Red Blood Cell Count 5.18 X10^6/uL (4.0-5.2); Red Cell Distribution Width 14.1 % (11.6-14.8); White Blood Cell Count 5.4 X10^3/uL (4.5-11.0)
[2021-07-11 11:37] LABS: Alanine Aminotransferase 35 IU/L (<35); Albumin 4.3 g/dL (3.5-5.0); Albumin Globulin Ratio 1.4 (1.0-2.8); Alkaline Phosphatase 82 U/L (38-126); Aspartate Aminotransferase 32 IU/L (14-36); BUN Creatinine Ratio 30.4 (6-22); Bilirubin Total 0.4 mg/dL (0.2-1.3); Blood Urea Nitrogen 17 mg/dL (7-17); Calcium 9.2 mg/dL (8.4-10.2); Carbon Dioxide 32 mmol/L (22-32); Chloride 105 mmol/L (98-107); Cholesterol 203 mg/dL (140-199); Estimated Glomerular Filt Rate > 60.0 mL/min (>60); Glucose 102 mg/dL (80-110); HDL Cholesterol 92 mg/dL (40-60); HEMOLYSIS < 15 (0-50); LDL Cholesterol Calculated 95 mg/dL (<100); Potassium 4.5 mmol/L (3.4-5.1); Sodium 138 mmol/L (137-145); Total Protein 7.3 g/dL (6.3-8.2); Triglycerides 81 mg/dL (35-150)
[2021-07-11 12:03] LABS: TSH w/ Reflex to FT4 1.45 uIU/mL (0.47-4.68)
[2021-07-11 18:18] LABS: Creatinine Urine Random 45.4 mg/dL
[2021-07-11 18:21] LABS: Microalbumi Creatinin Ratio Ur 19.8 ug/mg CR (<30); Microalbumin Urine Random 0.9 mg/dL (0-1.6)
== END ==
PROVIDERS: PCP Family Medicine; Referring Provider Family Medicine; Visit Provider Family Medicine
DX: E78.2 Mixed hyperlipidemia (principal); I10 Essential (primary) hypertension
CPT/HCPCS: 36415; 80053; 80061; 82043; 82570; 84443; 85025

== ENCOUNTER → 2021-10-05 12:17 | Outpatient (CLI) | payer MEDICARE, OTHER, SELFPAY ==
[2021-10-05 12:43] LABS: COVID19 -Nasal RAPID Negative (Negative)
== END ==
PROVIDERS: PCP Family Medicine; Visit Provider Physician Assistant
DX: R09.89 Other specified symptoms and signs involving the circulatory and respiratory systems (principal); R06.02 Shortness of breath; R82.90 Unspecified abnormal findings in urine
CPT/HCPCS: 87077; 87086; 87186; 87635

== ENCOUNTER → 2021-10-05 13:56 | Outpatient (CLI) | payer MEDICARE, OTHER, SELFPAY ==
--- NOTE | 2021-10-05 13:58 | DI.RAD.S_ITS ---
PROCEDURE: XR CHEST 2V INDICATIONS: eval PNA, hx with similar chest tightness, cough TECHNIQUE: 2 views of the chest were acquired. COMPARISON: [facility], CR, XR CHEST 1V, 10/18/2019, 9:56. FINDINGS: Surgical changes and devices: None. Lungs and pleura: Lungs are clear. No pleural effusions or pneumothorax. Mediastinum: Mediastinal contours are normal. Heart size is normal. Bones and chest wall: No suspicious bony abnormalities. Soft tissues appear unremarkable. IMPRESSION: No acute cardiopulmonary process demonstrated radiographically. No significant change from prior. Dictated by: Fidencio Zavala M.D. on 10/05/2021 at 14:14 Approved by: Fidencio Zavala M.D. on 10/05/2021 at 14:14
== END ==
PROVIDERS: PCP Family Medicine; Referring Provider Physician Assistant; Visit Provider Physician Assistant
DX: J06.9 Acute upper respiratory infection, unspecified (principal); R09.89 Other specified symptoms and signs involving the circulatory and respiratory systems; R06.02 Shortness of breath; R82.90 Unspecified abnormal findings in urine
CPT/HCPCS: 71046; 87077; 87086; 87186; 87635

== ENCOUNTER → 2022-01-31 10:53 | Outpatient (CLI) | payer MEDICARE, OTHER, SELFPAY ==
[2022-01-31 14:26] LABS: Alanine Aminotransferase 24 IU/L (<35); Albumin 4.1 g/dL (3.5-5.0); Albumin Globulin Ratio 1.6 (1.0-2.8); Alkaline Phosphatase 78 U/L (38-126); Aspartate Aminotransferase 26 IU/L (14-36); BUN Creatinine Ratio 27.5 (6-22); Bilirubin Total 0.4 mg/dL (0.2-1.3); Blood Urea Nitrogen 19 mg/dL (7-17); Calcium 9.2 mg/dL (8.4-10.2); Carbon Dioxide 29 mmol/L (22-32); Chloride 106 mmol/L (98-107); Estimated Glomerular Filt Rate > 60 mL/min (>60); Globulin 2.6 g/dL (1.7-4.1); Glucose 78 mg/dL (80-110); HEMOLYSIS < 15 (0-50); Potassium 4.3 mmol/L (3.4-5.1); Sodium 141 mmol/L (137-145); Total Protein 6.7 g/dL (6.3-8.2)
== END ==
PROVIDERS: PCP Family Medicine; Referring Provider Family Medicine; Visit Provider Family Medicine
DX: I10 Essential (primary) hypertension (principal); R74.8 Abnormal levels of other serum enzymes
CPT/HCPCS: 36415; 80053

== ENCOUNTER → 2022-06-10 15:15 | Outpatient (CLI) | payer MEDICARE, OTHER, SELFPAY ==
--- NOTE | 2022-06-10 | DI.MG.S_ITS ---
BILATERAL DIGITAL SCREENING MAMMOGRAM 3D/2D WITH CAD: 06/10/2022 CLINICAL: Routine screening. Comparison is made to exams dated: 06/08/2021 mammogram, 06/01/2020 mammogram, 01/06/2019 mammogram, and 12/11/2017 mammogram - [facility]. There are scattered fibroglandular elements in both breasts. Current study was also evaluated with a Computer Aided Detection (CAD) system. There are benign calcifications in both breasts. There also are benign vascular calcifications in the right breast. No significant masses, calcifications, or other findings are seen in either breast. There has been no significant interval change. IMPRESSION: BENIGN There is no mammographic evidence of malignancy. A 1 year screening mammogram is recommended. Based on the Tyrer Cuzick model (a risk assessment model) the patient's lifetime risk is 2.9% and her 10 year risk is 2.9%. According to the ACR, ACS, and NCCN guidelines, an annual breast MRI exam along with mammogram is recommended if the patient's lifetime risk is 20% or greater. This exam was interpreted at Station ID: [id number]. NOTE: For mammograms, a report in lay terms will be sent to the patient. Approximately 15% of breast malignancies will not be visualized mammographically. In the management of a palpable breast mass, a negative mammogram must not discourage biopsy of a clinically suspicious lesion. Electronically Signed By: Ronal méndez/michael:06/11/2022 08:17:09 letter sent: Normal Exam ACR BI-RADS Category 2: Benign Finding(s) [id number]
== END ==
PROVIDERS: PCP Family Medicine; Referring Provider Family Medicine; Visit Provider Family Medicine
DX: Z12.31 Encounter for screening mammogram for malignant neoplasm of breast (principal)
CPT/HCPCS: 77063; 77067

== ENCOUNTER 2022-12-26 12:20 | Emergency (ER) | payer MEDICARE, OTHER, SELFPAY ==
[2022-12-26] VITALS (7 sets, daily range): BP systolic 183–217; BP diastolic 99–112; PULSE 62–77; RESP 18–20; TEMP 36.6; O2SAT 97–99; BMI 23.2
--- NOTE | 2022-12-26 15:16 | PC.NURSE ---
Pt wants to wait for the doctor before anyone can exam. denies pain.
--- NOTE | 2022-12-26 16:25 | ED.SKABFB ---
HPI - Skin/Abscess/Foreign Bdy General Chief complaint: Skin/Abscess/Foreign Body Stated complaint: Cyst, Sent by Dr. Moreau Time Seen by Provider: 12/26/22 16:21 Source: patient Mode of arrival: Ambulatory Limitations: no limitations History of Present Illness HPI narrative: This is a 77-year-old female who presents with complaint of a cyst either in the vaginal or groin area she states it has been there for awhile she saw someone it looks like she had a visit and saw Bartholin but patient states it is more in the outside. She states it is not painful it is nontender she tried to set up follow up with Dr. Sanchez but told her it would be until January. She states there maybe some drainage that is clear but no other issues. She is not even sure about the drainage. It has not been painful increasing in size causing other issues. She is never had anything similar. She states her only medications are vitamin-D, calcium and Geritol. No surgeries. She is sulfa she gets hives. Her primary care is Dr. Moreau. Related Data Home Medications Medication Instructions Recorded Confirmed CA PANTOTHENATE/FOLIC ACID/VIT ##0 12/30/12 12/25/22 (MULTIVITAMIN) calcium carbonate 600 mg calcium 600 mg PO BID 07/09/21 12/25/22 (1,500 mg) tablet (Calcium) cholecalciferol (vitamin D3) 50 50 mcg PO DAILY 07/09/21 12/25/22 mcg (2,000 unit) capsule Previous Rx's Medication Instructions Recorded fluticasone propionate 50 1 spray intranasal DAILY #15.8 mL 01/10/21 mcg/actuation nasal spray,suspension Allergies Allergy/AdvReac Type Severity Reaction Status Date / Time Sulfa (Sulfonamide Allergy Intermediate HIVES Verified 12/25/22 14:02 Antibiotics) Review of Systems Review of Systems ROS Unobtainable: All systems reviewed & are unremarkable except as noted in HPI and below Patient History Medical History Chronic sinusitis Elevated liver enzymes Measles Mumps Patient denies medical problems Radius/ulna fracture Seasonal allergies Surgical History History of tonsillectomy Social History Smoking Status: Never smoker Smoking Status: Never smoker Exam Narrative Exam Narrative: GENERAL: Alert and oriented x three, elderly female in mild distress. HEENT: Head normocephalic, atraumatic, EOMI, pupils reactive, face symmetric, moist mucous membranes NECK: Supple, full range of motion CARDIOVASCULAR: Regular rate and rhythm without murmurs, rubs or gallops. RESPIRATORY: Breath sounds equal bilaterally, no wheezes rales or rhonchi. ABDOMEN: Soft, nontender. Normoactive bowel sounds all 4 quadrants. No guarding or rebound, rigidity, no mass : No CVA tenderness Female: externa vaginal examl normal except for an area of firmness that is about 1 cm in size at the left labia majora. Patient feels full, nontender no drainage, no warmth and no erythema. There is no surrounding changes to the skin. Feels consistent with Bartholin gland cyst in terms of location and exam. No vaginal bleeding, no discharge. EXTREMITIES: Normal range of motion, no clubbing or edema. Neurovascularly intact NEUROLOGICAL: Cranial nerves II through XII grossly intact. Moving all extremities SKIN: Warm, dry, no petechiae, no rashes or lesions. Initial Vital Signs Initial Vital Signs: Vital Signs Temperature 98 F 12/26/22 12:28 Pulse Rate 77 12/26/22 12:28 Respiratory Rate 18 12/26/22 12:28 Blood Pressure 204/102 H 12/26/22 12:28 Pulse Oximetry 99 12/26/22 12:28 Oxygen Delivery Method Room Air 12/26/22 12:28 Course Vital Signs Vital signs: Vital Signs - 8 hr 12/26/22 15:09 12/26/22 15:11 12/26/22 15:11 Pulse Rate 77 69 Respiratory Rate 20 Blood Pressure 217/104 H Pulse Oximetry 99 99 Oxygen Delivery Method Room Air 12/26/22 15:30 12/26/22 15:30 12/26/22 16:00 Pulse Rate 62 Respiratory Rate Blood Pressure 209/99 H 183/100 H Pulse Oximetry 98 Oxygen Delivery Method 12/26/22 16:00 12/26/22 16:30 12/26/22 16:30 Pulse Rate 63 74 Respiratory Rate Blood Pressure 199/112 H Pulse Oximetry 98 98 Oxygen Delivery Method 12/26/22 17:00 12/26/22 17:00 Pulse Rate 66 Respiratory Rate Blood Pressure 195/99 H Pulse Oximetry 97 Oxygen Delivery Method MDM - Skin/Abscess/Foreign Bdy MDM Narrative Medical decision making narrative: This is a 77-year-old female that is son for complaint of cyst on the left labial area. Patient states it is nontender it is not painful she tried to follow up with her primary care office she was told it would be several weeks until she can follow-up to come to the ER. Patient on examination does appear to have a Bartholin gland cyst. It does not appear to be infected. It is nontender discussed warm soaks, return if acutely infected but can follow up with Gynecology to be set up for marsupialization if needed. Discharge Plan Departure Patient Disposition: Home Clinical Impression: Bartholin gland cyst Instructions: DI for Bartholin Gland Cyst Activity Restrictions/Additional Instructions: Please follow-up with OBGYN, they will sometimes drain these preemptively if needed.. Stop at or call the office tomorrow to set up follow up. Use warm compresses to the affected area or warm baths 2-3 times daily.\ If the area becomes very painful, you are having fevers, new drainage or other issues return to the ER for recheck and potential drainage. Prescriptions: No Action CA PANTOTHENATE/FOLIC ACID/VIT (MULTIVITAMIN) Qty: 0 fluticasone propionate 50 mcg/actuation spray,suspension 1 spray INTRANASAL DAILY Qty: 15.8 1RF cholecalciferol (vitamin D3) 50 mcg (2,000 unit) capsule 50 mcg PO DAILY calcium carbonate [Calcium 600] 600 mg calcium (1,500 mg) tablet 600 mg PO BID Referrals: Shivani Sanders MD [Physician] - Anthony Moreau MD [Primary Care Provider] - Stand Alone Forms: Patient Portal/API
== END 2022-12-26 17:29 | disposition home or self-care (01) ==
PROVIDERS: Emergency Provider Emergency Medicine; PCP Family Medicine
DX: N75.0 Cyst of Bartholin's gland (principal)
CPT/HCPCS: 99281

== ENCOUNTER → 2024-02-13 17:55 | Outpatient (CLI) | payer MEDICARE, OTHER, SELFPAY | PROVIDERS: PCP Family Medicine; Visit Provider Physician Assistant | DX: L01.00 Impetigo, unspecified (principal) | CPT/HCPCS: 87070; 87075; 87205 ==

== ENCOUNTER → 2024-02-19 15:04 | Outpatient (CLI) | payer MEDICARE, OTHER, SELFPAY ==
--- NOTE | 2024-02-19 15:06 | DI.MG.S_ITS ---
BILATERAL DIGITAL SCREENING MAMMOGRAM 3D/2D WITH CAD: 02/19/2024 CLINICAL: Routine screening. Comparison is made to exams dated: 06/10/2022 mammogram, 06/08/2021 mammogram, and 06/01/2020 mammogram - [facility]. There are scattered areas of fibroglandular density in both breasts (category b / 25%-50% glandular tissue). Current study was also evaluated with a Computer Aided Detection (CAD) system. There are benign calcifications in both breasts. There also are benign vascular calcifications in the right breast. No significant masses, calcifications, or other findings are seen in either breast. There has been no significant interval change. IMPRESSION: BENIGN There is no mammographic evidence of malignancy. A 1 year screening mammogram is recommended. Based on the Tyrer Cuzick model (a risk assessment model) the patient's lifetime risk is 2.4% and her 10 year risk is 0.0%. According to the ACR, ACS, and NCCN guidelines, an annual breast MRI exam along with mammogram is recommended if the patient's lifetime risk is 20% or greater. This exam was interpreted at Station ID: [id number]. NOTE: For mammograms, a report in lay terms will be sent to the patient. Approximately 15% of breast malignancies will not be visualized mammographically. In the management of a palpable breast mass, a negative mammogram must not discourage biopsy of a clinically suspicious lesion. Electronically Signed By: Brent valladares/michael:02/20/2024 08:35:56 letter sent: Normal Exam ACR BI-RADS Category 2: Benign Finding(s) 3342F
== END ==
PROVIDERS: PCP Family Medicine; Referring Provider Family Medicine; Visit Provider Family Medicine
DX: Z12.31 Encounter for screening mammogram for malignant neoplasm of breast (principal); R92.323 Mammographic fibroglandular density, bilateral breasts
CPT/HCPCS: 77063; 77067

== ENCOUNTER → 2024-06-29 09:23 | Outpatient (CLI) | payer MEDICARE, OTHER, SELFPAY ==
[2024-06-29 10:20] LABS: Hematocrit 42.8 % (36-46); Mean Corpuscular HGB Conc 32.7 % (30-36); Mean Corpuscular Hemoglobin 27.2 PG (26-34); Mean Corpuscular Volume 83.3 fL (80-100); Platelet Count 211 X10^3/uL (150-400); Red Blood Cell Count 5.14 X10^6/uL (4.0-5.2); Red Cell Distribution Width 14.5 % (11.6-14.8); White Blood Cell Count 5.1 X10^3/uL (4.5-11.0)
[2024-06-29 11:08] LABS: Alanine Aminotransferase 25 IU/L (<35); Albumin 4.2 g/dL (3.5-5.0); Albumin Globulin Ratio 1.5 (1.0-2.8); Alkaline Phosphatase 98 U/L (38-126); Aspartate Aminotransferase 32 IU/L (14-36); BUN Creatinine Ratio 29.7 (6-22); Bilirubin Total 0.7 mg/dL (0.2-1.3); Blood Urea Nitrogen 19 mg/dL (7-17); Calcium 9.6 mg/dL (8.4-10.2); Carbon Dioxide 26 mmol/L (22-32); Chloride 105 mmol/L (98-107); Cholesterol 247 mg/dL (140-199); Estimated Glomerular Filt Rate > 60 mL/min (>60); Globulin 2.8 g/dL (1.7-4.1); Glucose 93 mg/dL (80-110); HDL Cholesterol 102 mg/dL (40-60); HEMOLYSIS 43 (0-50); LDL Cholesterol Calculated 129 mg/dL (<100); Potassium 4.6 mmol/L (3.4-5.1); Sodium 138 mmol/L (137-145); Triglycerides 82 mg/dL (35-150)
[2024-06-29 11:20] LABS: TSH w/ Reflex to FT4 2.44 uIU/mL (0.47-4.68)
[2024-06-29 12:31] LABS: Creatinine Urine Random 36.36 mg/dL
== END ==
PROVIDERS: PCP Family Medicine; Referring Provider Family Medicine; Visit Provider Family Medicine
DX: Z00.00 Encounter for general adult medical examination without abnormal findings (principal); E78.2 Mixed hyperlipidemia; I10 Essential (primary) hypertension; R74.8 Abnormal levels of other serum enzymes
CPT/HCPCS: 36415; 80053; 80061; 82043; 82570; 84443; 85027

== ENCOUNTER 2025-02-22 16:30 | Emergency (ER) | payer MEDICARE, OTHER, SELFPAY ==
[2025-02-22 16:42] VITALS: BP 215/108; PULSE 69; RESP 16; TEMP 36.6; O2SAT 98; BMI 23.8
--- NOTE | 2025-02-22 18:23 | PC.NURSE ---
Pt reports acute on chronic sinusitis. States she has had 2 nose bleeds but only mentions nose bleed last night. Pt HTN w/ BP sys >200. Pt states she is suppose to take BP medicines but chooses not too because she is healthy and walks and drinks water. Pt blames nose bleed on dry air and not drinking enough water. GCS 15. No neuro deficiets noted. Pt states she is here for her sinuses. No headache. No fever. No ear pain. No throat pain. No chest congestion. Speech clear. No obvious masses in neck or face.
--- NOTE | 2025-02-22 18:30 | ED_ITS ---
HPI - General Adult General Chief complaint: Nasal Problem Stated complaint: Sinus infection, bleeding with clots Time Seen by Provider: 02/22/25 18:30 Source: patient Mode of arrival: Ambulatory History of Present Illness HPI narrative: 79-year-old female past medical history of hyperlipidemia hypertension recurrent nosebleeds presenting from home for evaluation of sinus problems, states that she thinks she may have a infection given the fact that she has intermittent epistaxis with clots, she states that she does have a history of high blood pressure but does not take any medications for this. She denies any other symptoms such as headache visual disturbances chest pain shortness breath fever chills nausea vomiting abdominal pain or any other GI/ symptoms. Not on any blood thinners. Related Data Home Medications Medication Instructions Recorded Confirmed CA PANTOTHENATE/FOLIC ACID/VIT ##0 12/30/12 02/19/25 (MULTIVITAMIN) calcium carbonate (Calcium 600) 600 mg PO BID 07/09/21 02/19/25 cholecalciferol (vitamin D3) 50 50 mcg PO DAILY 07/09/21 02/19/25 mcg (2,000 unit) capsule Previous Rx's Medication Instructions Recorded mupirocin 2 % topical ointment 1 applic topical DAILY #15 grams 06/29/24 oxymetazoline 0.05 % nasal mist 1 spray intranasal ONCE bloody 02/19/25 (Afrin (oxymetazoline)) nose #15 mL oxymetazoline 0.05 % nasal mist 2 spray intranasal Q12H PRN nasal 02/22/25 (Afrin (oxymetazoline)) congestion 3 days #15 mL Allergies Allergy/AdvReac Type Severity Reaction Status Date / Time Sulfa (Sulfonamide Allergy Intermediate HIVES Verified 02/19/25 10:46 Antibiotics) Review of Systems Review of Systems Narrative: General: Denies fever, chills, weight loss HEENT: Possible sinus infection, Denies headache, eye drainage, eye irritation, head trauma, sore throat, voice change Cardiovascular: Denies any chest pain, palpitations, tachycardia Respiratory: Denies any shortness of breath, cough, wheeze, stridor GI/: Denies any abdominal pain, nausea, vomiting, diarrhea, bright red blood per rectum, melanotic stools, urinary frequency, urinary retention, dysuria, hematuria MSK: Denies any joint pain, muscle pains, swelling Skin: Denies any rashes, lesions, discoloration Neuro: Denies any headache, lightheadedness, dizziness, fainting, weakness Psych: Denies SI/HI Patient History Medical History Elevated liver enzymes Mumps Measles Seasonal allergies Radius/ulna fracture Chronic sinusitis Patient denies medical problems Surgical History History of tonsillectomy Social History Smoking Status: Never smoker Smoking Status: Never smoker Exam Narrative Exam Narrative: General: Cooperative, well-developed, not in acute distress HEENT: Normocephalic, atraumatic, PERRLA, normal sclera, eyelids normal Neck: Active full range of motion, atraumatic Chest: Normal to inspection, negative crepitus, no overlying erythema ecchymosis Respiratory: Normal respiratory effort, not in acute respiratory distress, clear to auscultation bilaterally negative cough, wheeze, tachypnea, rhonchi, rales Cardiology: Regular rate rhythm negative gallop, murmur, rubs GI/: No tenderness to palpation, soft, non rigid, normal to inspection, exam deferred MSK: Full active range of motion in all 4 extremities, atraumatic, no tenderness to palpation of any bony prominences Skin: No rashes or lesions noted Neuro: Alert awake oriented x3, moves all 4 extremities spontaneously, cranial nerves intact, able to answer all questions appropriately follows commands appropriately Psych: Cooperative, negative suicidal or homicidal ideations Initial Vital Signs Initial Vital Signs: Vital Signs Temperature 97.8 F 02/22/25 16:42 Pulse Rate 69 02/22/25 16:42 Respiratory Rate 16 02/22/25 16:42 Blood Pressure 215/108 H 02/22/25 16:42 Pulse Oximetry 98 02/22/25 16:42 Oxygen Delivery Method Room Air 02/22/25 16:42 Course Vital Signs Vital signs: Vital Signs - 8 hr 02/22/25 16:42 Temperature 97.8 F Pulse Rate 69 Respiratory Rate 16 Blood Pressure 215/108 H Pulse Oximetry 98 Oxygen Delivery Method Room Air Medical Decision Making Differential Diagnosis Differential Diagnosis: Sinusitis, epistaxis MDM Narrative Medical decision making narrative: 79-year-old female history of uncontrolled hypertension not on any medications for this, hyperlipidemia recurrent nosebleed sinusitis presenting for possible sinusitis. States that she believes she might be having a sinus infection given the fact that she has recurrent infections and nosebleeds she is not on any blood thinners not having any epistaxis currently. She denies any other symptoms at this time. Patient states that she does not take any blood pressure medications because she does not like the way it ?makes her feel she understands that the blood pressure is extremely high at this time but she denies any headaches visual disturbances, informed her that it would be recommended to give her medication here as well as to restart it she states that she would like to think about this and discussed it with the primary care doctor, on exam patient without any epistaxis no signs of sinus infection, we will provide patient with prescription for home and instructed to follow up with PCP in outpatient setting. I did stress than need to restart her blood pressure medication given severely high blood pressure and risk for possible strokes bleeds or life-threatening condition she understands and still was like to just be discharged home and think about restarting these medications. Discharge Plan Departure Patient Disposition: Home Clinical Impression: Hypertension Instructions: DI for Malignant Hypertension, DI for Nosebleed Activity Restrictions/Additional Instructions: Please read the discharge instructions sheet carefully and bring all papers to all doctor follow-up visits, as it may contain information that your doctor may want to see. Disease processes change and evolve, if your symptoms worsen or if you develop any new symptoms that are concerning to you please return for evaluation. Your evaluation today does not show any evidence of any life- threatening/serious illnesses requiring admission to the hospital or surgery. Please follow-up with your doctor for re-evaluation in approximately 1 day. Seek immediate medical attention for any worrisome symptoms. *If you do not have a primary care provider please contact the [facility] Resource line at [phone]. They will ask some questions about your medical history and help get you set up with a doctor in the community. Prescriptions: New Afrin (oxymetazoline) 0.05 % mist 2 spray intranasal Q12H PRN (Reason: nasal congestion) 3 Days Qty: 15 0RF No Action Afrin (oxymetazoline) 0.05 % mist 1 spray intranasal ONCE Qty: 15 0RF Rx Instructions: One inhalation once each nostril for bloody nose episodes CA PANTOTHENATE/FOLIC ACID/VIT (MULTIVITAMIN) Qty: 0 cholecalciferol (vitamin D3) 50 mcg (2,000 unit) capsule 50 mcg PO DAILY calcium carbonate [Calcium 600] 600 mg calcium (1,500 mg) tablet 600 mg PO BID mupirocin 2 % ointment 1 applic topical DAILY Qty: 15 1RF Rx Instructions: apply to affected area by nose every day for 2 weeks, then stop Referrals: Anthony Moreau MD [Primary Care Provider] - Stand Alone Forms: Patient Portal/API/Survey
[2025-02-22 19:01] VITALS: BP 227/114
--- NOTE | 2025-02-22 19:02 | PC.NURSE ---
Pt educated on untreated HTN including but not limited to stroke. Pt states she is aware.
== END 2025-02-22 19:02 | disposition home or self-care (01) ==
PROVIDERS: Emergency Provider Student in an Organized Health Care Education/Training Program; PCP Family Medicine
DX: I10 Essential (primary) hypertension (principal); R04.0 Epistaxis
CPT/HCPCS: 99281

== ENCOUNTER → 2025-03-01 13:49 | Outpatient (CLI) | payer MEDICARE, OTHER, SELFPAY ==
--- NOTE | 2025-03-01 14:37 | DI.MG.S_ITS ---
MM screening mammo BI: 03/01/2025. BI-RADS: 0 CLINICAL: 79-year old female for bilateral screening mammogram. Tyrer-Cuzick lifetime risk of 1.1%. No personal or first-degree family history of breast cancer. PRIOR EXAMS 02/19/2024, 06/10/2022, 06/08/2021, 06/01/2020, 01/06/2019, 12/11/2017, 03/20/2016, 10/16/2015, 04/14/2015. MAMMOGRAPHY TECHNIQUE: 2D and 3D (tomosynthesis) digital mammographic views obtained, with additional images as needed for full coverage. Current study was also evaluated with a Computer Aided Detection (CAD) system. DENSITY B. There are scattered areas of fibroglandular density. MAMMOGRAPHY FINDINGS Right: Lower Inner at 4:00, Middle depth: Focal asymmetry needing additional imaging evaluation. Left: Lower Outer at 4:00, Middle depth: Focal asymmetry needing additional imaging evaluation. IMPRESSION: Right (Asymmetry): Lower Inner at 4:00, Middle depth * Incomplete - focal asymmetry needing additional imaging evaluation. Left (Asymmetry): Lower Outer at 4:00, Middle depth * Incomplete - focal asymmetry needing additional imaging evaluation. RECOMMENDATIONS Right: Lower Inner at 4:00, Middle depth * Further evaluation with diagnostic mammography and diagnostic ultrasound. Ultrasound to be performed only if needed. Left: Lower Outer at 4:00, Middle depth * Further evaluation with diagnostic mammography and diagnostic ultrasound. Ultrasound to be performed only if needed. OVERALL ASSESSMENT CATEGORY BI-RADS-0: Incomplete - Need Additional Imaging Evaluation. ELECTRONICALLY SIGNED: Brent Ivan M.D. on 03/01/2025 at 04:14:34 PM PT Interpreting Station ID: [id number]
== END ==
PROVIDERS: PCP Family Medicine; Referring Provider Family Medicine; Visit Provider Family Medicine
DX: Z12.31 Encounter for screening mammogram for malignant neoplasm of breast (principal); R92.8 Other abnormal and inconclusive findings on diagnostic imaging of breast
CPT/HCPCS: 77063; 77067

== ENCOUNTER → 2025-03-15 13:10 | Outpatient (CLI) | payer MEDICARE, OTHER, SELFPAY ==
--- NOTE | 2025-03-15 13:11 | DI.US.S_ITS ---
US breast LT limited, MM diagnostic mammo BI: 03/15/2025 BI-RADS: 2 CLINICAL: 79-year old female for bilateral diagnostic mammogram and left diagnostic breast ultrasound that is a recall from screening on 03/01/2025. Tyrer-Cuzick lifetime risk of 1.1%. No personal or first-degree family history of breast cancer. PRIOR EXAMS Mammogram(s): 03/01/2025. 11 Other Exams on 02/19/2024, 06/10/2022, 06/08/2021, 06/01/2020, 01/06/2019, 12/11/2017, 03/20/2016, 10/16/2015, 04/14/2015. MAMMOGRAPHY TECHNIQUE: 2D and 3D (tomosynthesis) digital mammographic views obtained, with additional images as needed for full coverage. Current study was also evaluated with a Computer Aided Detection (CAD) system. ULTRASOUND TECHNIQUE Real-time boles scale and color doppler imaging of the area of clinical interest was performed with image documentation. DENSITY B. There are scattered areas of fibroglandular density. MAMMOGRAPHY FINDINGS Right: Lower Inner at 4:00, Middle depth: The finding seen on recent screening mammogram did not persist with additional imaging and is consistent with superimposition of normal breast tissue. No suspicious mass, asymmetry, microcalcification, or other abnormality seen. Left (finding-1): Lower Outer at 4:00, Middle depth, measuring 0.4cm: There is a circumscribed, round mass present. ULTRASOUND FINDINGS Left (finding-1): Lower Outer at 4:00, 3.0 cm from nipple, measuring 0.3 x 0.3 x 0.3 cm: Correlating with findings on mammogram there is a simple cyst. IMPRESSION: Right * No evidence of malignancy. Left * No evidence of malignancy with benign findings. RECOMMENDATIONS Bilateral * Annual screening mammography. COMMENTS: Findings and recommendations were conveyed to the patient during today's evaluation. OVERALL ASSESSMENT CATEGORY BI-RADS-2: Benign. The [employer] recommends annual screening mammography beginning at age 40 for women with average risk of breast cancer. ELECTRONICALLY SIGNED: Christine Peters M.D. on 03/15/2025 at 03:37:31 PM PT Interpreting Station ID: [id number]
== END ==
PROVIDERS: PCP Family Medicine; Referring Provider Family Medicine; Visit Provider Family Medicine
DX: R92.8 Other abnormal and inconclusive findings on diagnostic imaging of breast (principal); N60.02 Solitary cyst of left breast
CPT/HCPCS: 76642; 77066; G0279